=== PATIENT | male | born 1985 | race Caucasian/White ===

== ENCOUNTER 2017-11-17 20:24 | Emergency (ER) | payer MEDICAID ==
--- NOTE | 2017-11-17 21:28 | EDM.PDOC ---
ED HPI GENERAL MEDICAL PROBLEM - General Chief Complaint: ENT Problem Stated Complaint: SORE THROAT Time Seen by Provider: 11/17/17 21:05 Source of Information: Reports: Patient History Limitations: Reports: No Limitations - History of Present Illness INITIAL COMMENTS - FREE TEXT/NARRATIVE: Patient is a 32 y/o male who has history of reoccurring strep throat infections who presents to the E.D. complaining of sore throat. States it started 3 days ago and has progressively gotten worse. Noted a white patchy area to his tonsils. Has had mild sinus congestion with post nasal drip. Has chronic cough with no significant worsening with symptoms. Denies any fevers, ear pain, sob, n/v, abdominal pain, rash, or any additional complaints. Of note patient is on PCN for a dental infection. Just took the last dose today. Patient states fiance has similar symptoms. - Related Data Allergies Allergy/AdvReac Type Severity Reaction Status Date / Time cat dander Allergy Airway Verified 11/17/17 20:59 Tightness tree and shrub pollen Allergy Airway Verified 11/17/17 20:59 Tightness Home Meds: Home Meds . [No Known Home Meds] 11/17/17 [History] Past Medical History HEENT History: Reports: Other (See Below) Other HEENT History: recurrent strep Cardiovascular History: Reports: Hypertension, Other (See Below) Other Cardiovascular History: low blood flow Respiratory History: Reports: Asthma Gastrointestinal History: Reports: Other (See Below) Other Gastrointestinal History: acid reflux Musculoskeletal History: Reports: Other (See Below) Other Musculoskeletal History: 2 slipped disc, 2 bulging disc, degenerative disc disease, narrowing spine Neurological History: Reports: Other (See Below) Other Neuro History: tremors Psychiatric History: Reports: Anxiety, Depression, Mood Swings, PTSD Other Psychiatric History: social anxiety Social & Family History - Tobacco Use Smoking Status *Q: Never Smoker - Caffeine Use Caffeine Use: Reports: Energy Drinks - Recreational Drug Use Recreational Drug Use: Yes Drug Use in Last 12 Months: Yes Recreational Drug Type: Reports: Marijuana/Hashish Other Recreational Drug Type: smoked pot in [place] ED ROS ENT - Review of Systems Review Of Systems: ROS reveals no pertinent complaints other than HPI. ED EXAM, ENT - Physical Exam Exam: See Below Exam Limited By: No Limitations General Appearance: Alert, WD/WN, No Apparent Distress Eye Exam: Bilateral Eye: PERRL Ears: Normal External Exam, Normal Canal, Hearing Grossly Normal, Normal TMs, TM Obscured by Cerumen (right) Nose: Normal Inspection, Normal Mucousa, No Blood Mouth/Throat: Normal Inspection, Normal Lips, Pharyngeal Erythema, Throat Pain, Tonsillar Erythema, Tonsillar Swelling. No: Dry Mucous Membrane, Muffled Voice , Tonsillar Exudates, Trismus, Uvular Deviation Head: Atraumatic, Normocephalic Neck: Normal Inspection, Supple, Non-Tender, Full Range of Motion. No: Lymphadenopathy (L), Lymphadenopathy (R) Respiratory/Chest: No Respiratory Distress, Lungs Clear, Normal Breath Sounds, No Accessory Muscle Use, Chest Non-Tender Cardiovascular: Normal Peripheral Pulses, Regular Rate, Rhythm, No Murmur Neurological: Alert, Oriented, CN II-XII Intact, Normal Cognition, No Motor/ Sensory Deficits Psychiatric: Normal Affect, Normal Mood Skin: Warm, Dry, Intact, Normal Color, No Rash Course - Vital Signs Last Recorded V/S: Last Vital Signs Temp 97.1 F 11/17/17 21:00 Pulse 108 H 11/17/17 21:00 Resp 16 11/17/17 21:00 BP 146/108 H 11/17/17 21:00 Pulse Ox 99 11/17/17 21:00 - Orders/Labs/Meds Orders: Active Orders 24 hr Category Date Time Status CULTURE STREP A CONFIRMATION [RM] Stat Lab 11/17/17 21:23 Results Rapid Strep w/culture conf [STREP SCRN A RAPID W CULT Lab 11/17/17 21:23 Results CONF] [RM] Stat - Re-Assessments/Exams Free Text/Narrative Re-Assessment/Exam: Ordered a strep screen. 11/17/17 21:47 Strep screen negative. Will discharge home with instructions as documented. Departure - Departure Time of Disposition: 21:47 Disposition: Home, Self-Care 01 Condition: Good Clinical Impression: Viral URI with cough - Discharge Information Referrals: PCP,None [Primary Care Provider] - Forms: ED Department Discharge, ED Return to Work/School Form Additional Instructions: As discussed strep screen negative. Suggesting this is related to viral upper respiratory infection. Thus treatment is symptomatic care including: flonase 1- 2 sprays twice a day, nasal saline spray as needed throughout the course of the day, tylenol and motrin in alternating fashion for pain. Push the fluids. Followup with PCP as needed for any new or worsening symptoms. - My Orders Last 24 Hours: My Active Orders 11/17/17 21:23 CULTURE STREP A CONFIRMATION [] Stat Rapid Strep w/culture conf [STREP SCRN A RAPID W CULT CONF] [] Stat - Assessment/Plan Last 24 Hours: My Active Orders 11/17/17 21:23 CULTURE STREP A CONFIRMATION [] Stat Rapid Strep w/culture conf [STREP SCRN A RAPID W CULT CONF] [] Stat
== END 2017-11-17 22:04 | disposition home or self-care (01) ==
LOC: JD.ED 20:24
DX: J06.9 Acute upper respiratory infection, unspecified (principal); I10 Essential (primary) hypertension
CPT/HCPCS: 87081; 87430; 99283